=== PATIENT | female | born 1960 | race Caucasian/White ===

== ENCOUNTER 2020-08-25 08:55 | Day surgery (SDC) | payer BC ==
[~2020-08-25 08:55] MED LIST: Lactated Ringers 1,000 ML IV SCH; Lidocaine 1%/Sod Bicarbonate in NS 8.4% 1 ML Syringe IDERM PRN; Sodium Chloride 0.9% 10 ML Syringe FLUSH PRN
--- NOTE | 2020-08-25 09:16 | PCM.PREANE ---
Preanesthetic Assessment - Procedure Proposed Procedure: Colonoscopy - Anesthesia/Transfusion/Family Hx Anesthesia History: Prior Anesthesia Without Reaction Family History of Anesthesia Reaction: Other (see below) (unknown, father needed " a different type of anesthesia once' but was not sure on details of this, no other family members with problems) Transfusion History: No Prior Transfusion(s) Intubation History: Unknown - Review of Systems General: No Symptoms Pulmonary: No Symptoms Cardiovascular: No Symptoms Gastrointestinal: No Symptoms Neurological: No Symptoms, Tingling (right arm before cervical neck surgery, now no problems ) Other: Reports: None, Thyroid Problems - Physical Assessment NPO Status Date: 08/25/20 NPO Status Time: 04:30 Height: 1.57 m Weight: 78.4 kg ASA Class: 2 Mental Status: Alert & Oriented x3 Airway Class: Mallampati = 1 Dentition: Reports: Normal Dentition Thyro-Mental Finger Breadths: 3 Mouth Opening Finger Breadths: 4 ROM/Head Extension: Limited/Partial Lungs: Clear to Auscultation Cardiovascular: Regular Rate, Regular Rhythm - Allergies Allergies/Adverse Reactions: Allergies Allergy/AdvReac Type Severity Reaction Status Date / Time Sulfa (Sulfonamide AdvReac Nausea and Verified 08/24/20 13:57 Antibiotics) Vomiting - Blood Blood Available: No - Anesthesia Plan Pre-Op Medication Ordered: None - Acknowledgements Anesthesia Type Planned: MAC Pt an Appropriate Candidate for the Planned Anesthesia: Yes Alternatives and Risks of Anesthesia Discussed w Pt/Guardian: Yes Pt/Guardian Understands and Agrees with Anesthesia Plan: Yes PreAnesthesia Questionnaire HEENT History: Reports: Allergic Rhinitis, Impaired Vision, Otitis Media, Sinusitis Cardiovascular History: Reports: None Respiratory History: Reports: None Gastrointestinal History: Reports: None Genitourinary History: Reports: Other (See Below) Other Genitourinary History: post menopausal [employer]ER History: Reports: None Musculoskeletal History: Reports: Other (See Below) Other Musculoskeletal History: arm radiculopathy, right knee pain, thoracic back pain, arm surgery Psychiatric History: Reports: None Endocrine/Metabolic History: Reports: Hypothyroidism, Vitamin D Deficiency Hematologic History: Reports: None Immunologic History: Reports: None Oncologic (Cancer) History: Reports: None Dermatologic History: Reports: None - Infectious Disease History Infectious Disease History: Reports: None - Past Surgical History HEENT Surgical History: Reports: None Cardiovascular Surgical History: Reports: None Respiratory Surgical History: Reports: None GI Surgical History: Reports: Colonoscopy Female Surgical History: Reports: Section Male Surgical History: Reports: None Endocrine Surgical History: Reports: None Neurological Surgical History: Reports: Discectomy Musculoskeletal Surgical History: Reports: None Oncologic Surgical History: Reports: None Dermatological Surgical History: Reports: None - SUBSTANCE USE Tobacco Use Status *Q: Never Tobacco User Recreational Drug Use History: No - HOME MEDS Home Medications: Home Meds Cholecalciferol (Vitamin D3) [Vitamin D3] 5,000 unit PO DAILY 08/24/20 [History] Fish Oil/[place]-3 Fatty Acids [Fish Oil 1,000 MG] 1 gm PO DAILY 08/24/20 [History] Fluticasone Propionate 1 dose NASBOTH DAILY PRN 08/24/20 [History] Ibuprofen 800 mg PO QID PRN 08/24/20 [History] Ketotifen Fumarate [Zaditor] 1 dose EYEBOTH DAILY 08/24/20 [History] Loratadine [Claritin] 10 mg PO DAILY 08/24/20 [History] Multivitamin 1 tab PO DAILY 08/24/20 [History] Thyroid [[place] Thyroid] 60 mg PO [id number] 08/24/20 [History] Thyroid [[place] Thyroid] 90 mg PO MONTOYA 08/24/20 [History] - CURRENT (IN HOUSE) MEDS Current Meds: Current Medications Lactated Ringer's (Ringers, Lactated) 1,000 mls @ 125 mls/hr IV ASDIRECTED KAROLYN Stop: 08/25/20 23:00 Lidocaine/Sodium Bicarbonate (Buffered Lidocaine 1% In Ns 8.4%) 0.25 ml IDERM ONETIME PRN PRN Reason: Prior to IV Start Stop: 08/25/20 18:00 Sodium Chloride (Saline Flush) 10 ml FLUSH ASDIRECTED PRN PRN Reason: Keep Vein Open Stop: 08/25/20 18:00
[2020-08-25] MEDS ORDERED: Propofol 200 MG/20 ML SDV ONE ×2 (09:54→10:14)
[2020-08-25] MEDS ORDERED: Lidocaine 1% 4 ML ONE (09:57)
[2020-08-25] MEDS ORDERED: fentaNYL 100 MCG/2 ML SDV ONE (10:18)
--- NOTE | 2020-08-25 10:36 | PCM.PRNOTE ---
- Free Text/Narrative Note: Date: 08/25/2020 Procedure: screening colonoscopy Endoscopist: Prasad Francois MD Findings: excellent prep. No abnormal findings. Detailed Report: The patient was taken to the endoscopy suite and placed in left lateral decubitus position. Time out was performed and monitored anesthesia care was initiated. Anus appeared normal. Digital rectal exam was unremarkable. The colonoscope was inserted and advanced to the cecum. The appendiceal orifice and ileocecal valve were seen. The prep was excellent. The scope was slowly withdrawn and mucosal surfaces carefully inspected. No polyps were identified. There was no diverticulosis. No hemorrhoids noted on retroflexion; two small hypertrophied anal papillae seen. Air was suctioned and the scope withdrawn. The patient tolerated the procedure well.
--- NOTE | 2020-08-25 10:51 | PCM48HPAN ---
Post Anesthesia Note - EVALUATION WITHIN 48HRS OF ANESTHETIC Vital Signs in Normal Range: Yes Patient Participated in Evaluation: Yes Respiratory Function Stable: Yes Airway Patent: Yes Cardiovascular Function Stable: Yes Hydration Status Stable: Yes Pain Control Satisfactory: Yes Nausea and Vomiting Control Satisfactory: Yes Mental Status Recovered: Yes Vital Signs: Last Vital Signs Temp 36.3 C 08/25/20 10:40 Pulse 58 L 08/25/20 10:40 Resp 12 08/25/20 10:40 BP 113/68 08/25/20 10:40 Pulse Ox 100 08/25/20 10:40
== END 2020-08-25 11:30 | disposition home or self-care (01) ==
LOC: JD.SDS 08:55
PROVIDERS: ATTEND Surgery
DX: Z12.11 Encounter for screening for malignant neoplasm of colon (principal); E03.9 Hypothyroidism, unspecified; E55.9 Vitamin D deficiency, unspecified; Z88.2 Allergy status to sulfonamides; Z79.899 Other long term (current) drug therapy
CPT/HCPCS: 45378; J2704; J3010; J7120; 00812